=== PATIENT | male | born 1940 | race Caucasian/White ===

== ENCOUNTER → 2016-09-15 | Outpatient (CLI) | payer OTHER ==
[~2016-09-15] MED LIST: AMBIEN10 MG PO; CAPOTEN25 MG PO; CAPT25T PO; CELEBREX200 MG PO; Capoten PO; Coumadin Daily Dose PO; DYAZIDE, MA1 CAPSULE PO; Dyazide, Maxzide 37. PO; Flexeril PO; GLIPIZIDE ER2.5 MG PO; HYDROCODON-ACE1 EAC7 PO; INDERAL LA60 MG PO; Inderal LA PO; LIPITOR40 MG PO; Lipitor PO; Omega III EPA + DHA PO; PROAIR HFA8.5 GM IH; Percocet 5/325,Endoc PO; TRIAMTERENE-HC1 EACH PO; TYLENOL EXTRA500 MG PO; Tylenol Extra Streng PO; WARFARIN SODIUM5 MG PO; ZOLOFT50 MG PO; Zoloft PO
== END | disposition home or self-care (01) ==
LOC: RES 07:37
DX: J44.9 Chronic obstructive pulmonary disease, unspecified (principal)
CPT/HCPCS: 94060; 94726; 94729